=== PATIENT | male | born 1990 | race African-American/Black ===

== ENCOUNTER 2022-02-13 18:45 | Emergency (ER) | payer OTHER, SELFPAY ==
--- NOTE | ~2022-02-13 | CT_ITS ---
EXAMINATION: CT HEAD WITHOUT CONTRAST CLINICAL INFORMATION: Left upper extremity numbness. COMPARISON: None available. TECHNIQUE: Contiguous axial imaging was performed from the skull base to vertex without intravenous administration of contrast. This CT examination was performed using dose optimization techniques as appropriate, variously including the following: *Automated exposure control. *Adjustment of mA and/or kV according to patient size (this includes techniques or standardized protocols for targeted exams where dose is matched to indication/reason for exam; i.e. extremities or head). *Use of iterative reconstruction technique. DLP: 764 mGy-cm FINDINGS: There is no evidence of acute intracranial hemorrhage or edematous territorial infarction. There is no abnormal attenuation within the brain parenchyma. [place]-white matter differentiation is preserved. The ventricles are normal in size and configuration. No evidence for obstructive hydrocephalus. No abnormal mass effect or midline shift. No extra-axial fluid collections. No acute soft tissue or osseous abnormalities. Moderate mucosal thickening of the paranasal sinuses. The mastoid air cells and middle ear cavities are clear. CT/CT head for stroke IMPRESSION: No evidence of acute intracranial hemorrhage or edematous territorial infarction.
[2022-02-13 19:05] VITALS: BP 110/57; BP 140/84; PULSE 78; PULSE 83; RESP 15; TEMP 36.5; O2SAT 98; O2SAT 99; BMI 31.6
--- NOTE | 2022-02-13 19:09 | ECG_ITS ---
Test Reason : stroke Blood Pressure : / mmHG Vent. Rate : 077 BPM Atrial Rate : 077 BPM P-R Int : 176 ms QRS Dur : 092 ms QT Int : 342 ms P-R-T Axes : 045 038 -11 degrees QTc Int : 387 ms Normal sinus rhythm Nonspecific ST and T wave abnormality ST elevation consider lateral injury or acute infarct Abnormal ECG No previous ECGs available Referred By: Marianna Garibay Electronically Signed By:RITO WALDEN
--- NOTE | 2022-02-13 19:11 | ED.NEUROSD ---
HPI - Neuro Symptoms/Deficit General Chief Complaint: Neuro Symptoms/Deficit Stated Complaint: L arm numbness Time Seen by Provider: 02/13/22 19:09 Source: patient Mode of arrival: EMS History of Present Illness HPI Narrative: 31-year-old male with history of diabetes and states he does not take medication who says that he had a right upper tooth pulled yesterday and describes a symptoms most consistent with vasovagal response on exiting the dentist's office yesterday and denies any head strike. Patient states that he is having weirdness in his left upper extremity that extends to his left thumb. He said it just feels strange and the sensation is altered on examination. He otherwise denies any fever, chills, shortness of breath, chest pain /palpitations. Stroke protocol was activated. Related Data Previous Rx's Medication Instructions Recorded cyclobenzaprine 10 mg tablet 10 mg PO TID #90 tabs 02/03/22 ibuprofen 800 mg tablet 800 mg PO TID #90 tabs 02/03/22 Allergies Allergy/AdvReac Type Severity Reaction Status Date / Time No Known Allergies Allergy Verified 02/03/22 15:00 Review of Systems Review of Systems: Pertinent positives and negatives as stated in HPI 10 point review of systems is otherwise negative. PMFSH Past Medical History Source: nursing notes reviewed Social History Social History Advance Directives: No Advance Directives Information Provided: No Physical Exam Vital Signs: Vital Signs: Last Vital Signs Temp 98.6 F 02/13/22 21:35 Pulse 67 02/14/22 00:08 Resp 9 L 02/14/22 00:08 BP 105/63 02/14/22 00:08 Pulse Ox 96 02/14/22 00:08 O2 Del Method 02/14/22 00:08 BMI result Body Mass Index 31.6 VITAL SIGNS: Reviewed. GENERAL: Well developed, well nourished, in no acute distress. HEAD: Normocephalic/atraumatic EYES: PERRLA, EOMI EARS: Ext canals without abnormality OROPHARYNX: no oral lesions noted, posterior pharynx clear LUNGS: Normal breath sounds. No adventitious sounds or accessory muscle use. SpO2<98> CARDIOVASCULAR: Regular rate and rhythm without noted murmurs ABDOMEN: Soft, non-tender, non-distended with bowel sounds. MUSCULOSKELETAL: No tenderness, deformities, or effusions noted on gross inspection. EXTREMITIES: No cyanosis, clubbing or edema. SKIN: Inspection of the skin reveals no rashes, ulcerations, jaundice, pallor, or petechiae. NEUROLOGIC: Alert and oriented x 4. Please refer to NIH scale which is 1. no facial asymmetry, no pronator drift, but altered sensation in the left upper extremity from the thumb proximal Course Course Course Narrative: 31-year-old male with history and clinical presentation consistent with left upper extremity altered sensation/numbness concerning for possible lacunar. review of all investigations negative for acute findings, serial troponins are benign, patient continues to deny any chest pain. CPK -1250, patient will received 2 L of IV fluids and CPK will be repeated. 31-year-old male was completely asymptomatic, still denies any chest pain, repeat CPK of shows significant downward trend and patient is otherwise discharged home in stable condition without KAT on instructions to increase his water intake. Reevaluation(s) Reevaluation #1: [facility] report noncontrast CT head negative for acute findings. Reevaluation #2: I discussed the EKG findings with cardiology does not feel ST elevation criteria are met, patient is asymptomatic for chest pain although he is complaining left upper extremity numbness and weirdness . Will continue to monitor EKG as well as troponin results. Time: 19:21 Reevaluation #3: I discussed the case with Dr Solis who does not recommend tPa at this time as symptoms are more c/w with radicular nerve symptoms. Recommends CT angio head/neck if clinically indicated. However, I do not appreciate any significant motor deficits to prompt LVO r/o. Time: 19:55 MDM - Neuro Symptoms/Deficit Lab Data Result diagrams: 02/13/22 19:17 02/13/22 19:17 Labs: Lab Results 02/13/22 02/13/22 02/13/22 Range/Units 19:15 19:17 19:17 WBC 8.8 (4.8-10.8) X10*3/uL RBC 5.34 (4.60-5.80) X10*6/uL Hgb 14.6 (14.0-18.0) g/dl Hct 44.7 (42.0-52.0) % MCV 83.7 (80.0-98.0) fL MCH 27.3 (27.0-33.0) pg MCHC 32.7 (31.0-36.0) g/dl RDW 13.9 (11.0-16.0) % Plt Count 317 (160-400) X10*3/uL MPV 8.4 L (9.4-12.4) fL Immature Gran % (Auto) 0.1 (0.0-0.4) % Neut % (Auto) 42.4 L (45-73) % Lymph % (Auto) 34.3 (20-40) % [place] % (Auto) 9.4 (2-11) % Eos % (Auto) 13.5 H (0-4) % Baso % (Auto) 0.3 (0-2) % Lymph # (Auto) 3.0 (1.2-4.9) X10*3/uL [place] # (Auto) 0.8 (0.1-1.2) X10*3/uL Eos # (Auto) 1.2 H (0.0-0.4) X10*3/uL Baso # (Auto) 0.0 (0.0-0.2) X10*3/uL Abs Immat Gran (auto) 0.01 (0.00-0.03) X10*3/uL Absolute Neuts (auto) 3.7 (2.0-8.3) x10*3/uL Absolute Nucleated RBC 0.000 (0.0-0.012) X10*3/uL Nucleated RBC % (auto) 0.0 (0.0-0.2) /100WBC PT 10.1 (10.0-13.1) SEC INR 0.9 (0.9-1.1) APTT 29.7 (26.0-36.4) SEC Sodium (135-145) mmol/L Potassium (3.3-5.1) mmol/L Chloride (96-108) mmol/L Carbon Dioxide (22-29) mmol/L Anion Gap (12-20) BUN (9-16) mg/dL Creatinine (0.5-1.4) mg/dL Estim Creat Clear Calc Estimated GFR POC Glucose 173 H (60-115) mg/dL Random Glucose (60-115) mg/dL Calcium (8.4-10.2) mg/dL Total Creatine Kinase (38-174) U/L Troponin I High Sens (<3.5-35.0) ng/L Acetone, Qual (Negative) 02/13/22 02/13/22 02/13/22 Range/Units 19:17 19:17 19:17 WBC (4.8-10.8) X10*3/uL RBC (4.60-5.80) X10*6/uL Hgb (14.0-18.0) g/dl Hct (42.0-52.0) % MCV (80.0-98.0) fL MCH (27.0-33.0) pg MCHC (31.0-36.0) g/dl RDW (11.0-16.0) % Plt Count (160-400) X10*3/uL MPV (9.4-12.4) fL Immature Gran % (Auto) (0.0-0.4) % Neut % (Auto) (45-73) % Lymph % (Auto) (20-40) % [place] % (Auto) (2-11) % Eos % (Auto) (0-4) % Baso % (Auto) (0-2) % Lymph # (Auto) (1.2-4.9) X10*3/uL [place] # (Auto) (0.1-1.2) X10*3/uL Eos # (Auto) (0.0-0.4) X10*3/uL Baso # (Auto) (0.0-0.2) X10*3/uL Abs Immat Gran (auto) (0.00-0.03) X10*3/uL Absolute Neuts (auto) (2.0-8.3) x10*3/uL Absolute Nucleated RBC (0.0-0.012) X10*3/uL Nucleated RBC % (auto) (0.0-0.2) /100WBC PT (10.0-13.1) SEC INR (0.9-1.1) APTT (26.0-36.4) SEC Sodium 140 (135-145) mmol/L Potassium 3.8 (3.3-5.1) mmol/L Chloride 103 (96-108) mmol/L Carbon Dioxide 22 (22-29) mmol/L Anion Gap 19 (12-20) BUN 20 H (9-16) mg/dL Creatinine 1.38 (0.5-1.4) mg/dL Estim Creat Clear Calc 109.7 Estimated GFR 59 POC Glucose (60-115) mg/dL Random Glucose 168 H (60-115) mg/dL Calcium 9.6 (8.4-10.2) mg/dL Total Creatine Kinase 1250 H (38-174) U/L Troponin I High Sens 3.8 (<3.5-35.0) ng/L Acetone, Qual Negative (Negative) 02/13/22 02/14/22 Range/Units 20:45 00:05 WBC (4.8-10.8) X10*3/uL RBC (4.60-5.80) X10*6/uL Hgb (14.0-18.0) g/dl Hct (42.0-52.0) % MCV (80.0-98.0) fL MCH (27.0-33.0) pg MCHC (31.0-36.0) g/dl RDW (11.0-16.0) % Plt Count (160-400) X10*3/uL MPV (9.4-12.4) fL Immature Gran % (Auto) (0.0-0.4) % Neut % (Auto) (45-73) % Lymph % (Auto) (20-40) % [place] % (Auto) (2-11) % Eos % (Auto) (0-4) % Baso % (Auto) (0-2) % Lymph # (Auto) (1.2-4.9) X10*3/uL [place] # (Auto) (0.1-1.2) X10*3/uL Eos # (Auto) (0.0-0.4) X10*3/uL Baso # (Auto) (0.0-0.2) X10*3/uL Abs Immat Gran (auto) (0.00-0.03) X10*3/uL Absolute Neuts (auto) (2.0-8.3) x10*3/uL Absolute Nucleated RBC (0.0-0.012) X10*3/uL Nucleated RBC % (auto) (0.0-0.2) /100WBC PT (10.0-13.1) SEC INR (0.9-1.1) APTT (26.0-36.4) SEC Sodium (135-145) mmol/L Potassium (3.3-5.1) mmol/L Chloride (96-108) mmol/L Carbon Dioxide (22-29) mmol/L Anion Gap (12-20) BUN (9-16) mg/dL Creatinine (0.5-1.4) mg/dL Estim Creat Clear Calc Estimated GFR POC Glucose (60-115) mg/dL Random Glucose (60-115) mg/dL Calcium (8.4-10.2) mg/dL Total Creatine Kinase 915 H (38-174) U/L Troponin I High Sens < 3.5 (<3.5-35.0) ng/L Acetone, Qual (Negative) ECG Data Attestation: I personally reviewed and interpreted this ECG as follows: Prior ECG tracings: not available for review Interpretation: Normal sinus rhythm, HR - 77, questionable ST elevations in the lateral distribution but borderline and discussed with Cardiology, ID /QRS /QTC are within normal limits. NIH Stroke Scale Time: 19:05 Level of Consciousness: Alert Level of Consciousness Questions: Answers both questions correctly Level of Consciousness Commands: Performs both tasks correctly Best Gaze: Normal Visual: No visual loss Facial Palsy: Normal Motor Arm (Right): No drift Motor Arm (Left): No drift Motor Leg (Right): No drift Motor Leg (Left): No drift Limb Ataxia: Absent Sensory: Mild to moderate sensory loss Best Language: No aphasia Dysarthia: Normal Extinction and Inattention: No abnormality Score: 1 Discharge Plan Discharge Clinical Impression: Left upper extremity numbness, Neuropathy, Rhabdomyolysis Patient Disposition: Home, Self-Care Instructions: Peripheral Neuropathy (ED), Rhabdomyolysis (ED) Additional Instructions: 1. It is highly recommended that you should take diabetic medication, please follow-up with your primary care provider on Tuesday morning to set up an appointment for re-evaluation and to restart diabetic medication. Return to the ER for worsening symptoms. Prescriptions: No Action cyclobenzaprine 10 mg tablet 10 mg PO TID Qty: 90 0RF ibuprofen 800 mg tablet 800 mg PO TID Qty: 90 0RF Rx Instructions: take with milk or food
[2022-02-13 19:20] LABS: Glucose, Whole Blood 173 mg/dL (60-115)
[2022-02-13 19:21] LABS: MANUAL DIFF FLAG NO
--- NOTE | 2022-02-13 19:26 | ECG_ITS ---
Test Reason : STROKE Blood Pressure : / mmHG Vent. Rate : 071 BPM Atrial Rate : 071 BPM P-R Int : 188 ms QRS Dur : 104 ms QT Int : 364 ms P-R-T Axes : 047 062 -29 degrees QTc Int : 395 ms Normal sinus rhythm T wave abnormality, consider lateral ischemia Abnormal ECG When compared with ECG of 13-FEB-2022 19:04, T wave inversion more evident in Lateral leads Referred By: Marianna Garibay Electronically Signed By:RITO WALDEN
[2022-02-13 19:28] LABS: Basophils Percent Auto 0.3 % (0-2); Eosinophils Absolute Auto 1.2 X10*3/uL (0.0-0.4); Eosinophils Percent Auto 13.5 % (0-4); Hematocrit 44.7 % (42.0-52.0); Hemoglobin 14.6 g/dl (14.0-18.0); Imm Gran Abs Auto 0.01 X10*3/uL (0.00-0.03); Imm Gran Pct Auto 0.1 % (0.0-0.4); Lymphocytes Percent Auto 34.3 % (20-40); Mean Corpuscular HGB Conc 32.7 g/dl (31.0-36.0); Mean Corpuscular Hemoglobin 27.3 pg (27.0-33.0); Mean Corpuscular Volume 83.7 fL (80.0-98.0); Mean Platelet Volume 8.4 fL (9.4-12.4); Monocytes Absolute Auto 0.8 X10*3/uL (0.1-1.2); Monocytes Percent Auto 9.4 % (2-11); Neutrophils Absolute Auto 3.7 x10*3/uL (2.0-8.3); Neutrophils Percent Auto 42.4 % (45-73); Platelet Count 317 X10*3/uL (160-400); Red Blood Count 5.34 X10*6/uL (4.60-5.80); Red Cell Distribution Width 13.9 % (11.0-16.0); White Blood Count 8.8 X10*3/uL (4.8-10.8)
[2022-02-13 19:38] LABS: INTERNATIONAL NORM RATIO 0.9 (0.9-1.1); Prothrombin Time 10.1 SEC (10.0-13.1)
[2022-02-13 19:40] LABS: Partial Thromboplastin Time 29.7 SEC (26.0-36.4)
[2022-02-13 19:45] LABS: Troponin-I High Sensitivity 3.8 ng/L (<3.5-35.0)
[2022-02-13 19:52] LABS: Acetone, serum QL Negative (Negative)
[2022-02-13 20:10] LABS: Anion Gap 19 (12-20); Blood Urea Nitrogen 20 mg/dL (9-16); Calcium 9.6 mg/dL (8.4-10.2); Carbon Dioxide 22 mmol/L (22-29); Chloride 103 mmol/L (96-108); Creatinine Clr Calc Pharmacy 109.7; Estimated Glomerular Filt Rate 59; Glucose Random 168 mg/dL (60-115); Potassium 3.8 mmol/L (3.3-5.1); Sodium 140 mmol/L (135-145)
[2022-02-13 20:40] LABS: Stroke Lab Use COMPLETE
[2022-02-13 21:16] LABS: Troponin-I High Sensitivity < 3.5 ng/L (<3.5-35.0)
[2022-02-13 21:35] VITALS: BP 113/68; PULSE 73; RESP 19; TEMP 37; O2SAT 100
[2022-02-13] MEDS: 0.9 % Sodium Chloride 1,000 ML 999 ML IV ×2 (22:12)
[2022-02-14 00:08] VITALS: BP 105/63; PULSE 67; RESP 9; O2SAT 96
[2022-02-15 06:56] LABS: Prothrombin Time Whole Bld POC 12.2 sec (11.1-13.5)
== END 2022-02-14 01:34 | disposition home or self-care (01) ==
PROVIDERS: Emergency Provider Student in an Organized Health Care Education/Training Program
DX: R20.0 Anesthesia of skin (principal); G62.9 Polyneuropathy, unspecified; M62.82 Rhabdomyolysis; E11.9 Type 2 diabetes mellitus without complications
CPT/HCPCS: 36415; 70450; 80048; 82009; 82550; 82947; 84484; 85025; 85610; 85730; 93005; 99284